=== PATIENT | female | born 1995 | race Caucasian/White ===

== ENCOUNTER 2020-02-05 09:00 | Inpatient (IN) | payer BC ==
[2020-02-05] VITALS (32 sets, daily range): BP systolic 140–180; BP diastolic 71–104; PULSE 82–117; TEMP 97.7–98.8
[~2020-02-05] VITALS: Ht 167.6 cm; Wt 89.1 kg
--- NOTE | 2020-02-05 09:20 | NUR ---
Patient ambulatory onto unit with at side from office for induction of labor due to elevated blood pressures. Patient changes into gown. Oriented to room, plan of care discussed. Patient reports good movement and occasional tightening, denies contractions, vaginal bleeding, or leaking of fluid. Patient denies any headaches, dizziness, visual disturbances, ruq pain, or nausea. EFMS on, VS taken. IV attempted x2 by this RN. IV attempted x2 by Lyly GAMA. IV started in right hand by Rod BERRY at 0945. Labs drawn and LR infusing per orders. Assessment completed, consents signed. SVE /-2 per in office. Pitocin started per protocol.
[2020-02-05] MEDS ORDERED: PRENATAL VITAMI1 TA3 PO (09:52)
[2020-02-05] MEDS ORDERED: TYLENOL PM EXTR1 TA1 PO (09:53)
[2020-02-05 10:16] LABS: COLLECTION METHOD CLEAN CATCH
[2020-02-05 10:22] LABS: MUCOUS Present /lpf; PH 6 (5-8); SQUAMOUS EPITHELIAL 0-2 /hpf; URINE APPEARANCE Clear; URINE BACTERIA None Seen /hpf; URINE BILIRUBIN Negative (NEGATIVE); URINE BLOOD Negative (NEGATIVE); URINE COLOR Yellow; URINE GLUCOSE Negative (NEGATIVE); URINE KETONE Negative (NEGATIVE); URINE LEUKOCYTE ESTERASE Negative (NEGATIVE); URINE NITRATE Negative (NEGATIVE); URINE PROTEIN(semi-quant) Negative (NEGATIVE); URINE RBC 0-2 /hpf; URINE UROBILINOGEN Negative (NEGATIVE); URINE WBC 0-2 /hpf
[2020-02-05 10:23] LABS: BASO % 0.4 % (0.0-2.0); EOS % 0.5 % (0-4.0); GRAN # 6.1 (1.4-6.5); GRAN % 72.1 % (42.2-75.2); HEMOGLOBIN 11.4 g/dl (12.5-16.0); LYMPH # 1.7 (1.2-3.4); LYMPH % 20.3 % (20.0-51.0); MEAN CELL VOLUME 83 fl (80.0-100.0); MEAN CORPUSCULAR HEMOGLOBIN 26 pg (27.0-31.0); MEAN CORPUSCULAR HGB CONC 31 g/dl (33.0-37.0); MEAN PLATELET VOLUME 12.1 fl (7.4-10.4); MONO # 0.5 (0.1-0.6); MONO % 6.3 % (1.7-9.3); PLATELET COUNT 235 K/mm3 (130-400); RED BLOOD COUNT 4.42 M/mm3 (4.10-5.30); REDCELL DISTRIBUTION WIDTH-CV 15.9 % (11.5-14.5)
[2020-02-05 10:24] LABS: HEMATOCRIT 36.5 % (37.0-47.0)
[2020-02-05 10:32] LABS: ALBUMIN 3.5 gm/dL (3.5-5.0); BILIRUBIN,TOTAL 0.4 mg/dL (0.0-1.0); CALCIUM 9.1 mg/dL (8.4-10.2); CREATININE, serum 0.45 (0.52-1.25); POTASSIUM 4.2 mmol/L (3.4-5.0); TOTAL PROTEIN 6.6 gm/dL (6.4-8.2)
--- NOTE | 2020-02-05 10:40 | NUR ---
to bedside. AROM at 1043, moderate amount of clear fluid noted. SVE /-2 per provider. Plan of care discussed. Questions answered.
--- NOTE | 2020-02-05 12:00 | NUR ---
Patient requesting epidural. LR bolus started. Rod BERRY notified. 1145: Patient sitting up for epidural. 1151: Lidocaine. 1155: Epidural Catheter. 1156: Test Dose given by Rod BERRY, no adverse reactions notified. 1200: Patient repositioned to left tilt.
--- NOTE | 2020-02-05 12:30 | NUR ---
Patient comfortable with epidural. Ulrich catheter placed. SVE . Patient repositioned to right tilt with peanut ball in place. to bedside, SVE performed by provider, .
[2020-02-05] MEDS ORDERED: MOTRIN 800800 MG/TAB PO (12:52)
--- NOTE | 2020-02-05 13:30 | NUR ---
Patient comfortable with epidural, states she feels some pressure with contractions. SVE Complete/+1 at 1333. notified at 1337. Ulrich catheter dc'd at 1347. BPs elevated, notified. Orders to administer Labetalol given, see eMAR.
--- NOTE | 2020-02-05 15:05 | NUR ---
1405: Initial push. This RN remains at bedside during pushing progress. 1425: updated to pushing progress and vital signs. Requested for delivery. 1445: at bedside for delivery. 1451: Nursery nurse, Sara RN, requested for delivery. 1454: Spontaneous vaginal delivery of viable female infant over 4th degree perineal laceration assisted by . care assumed by Sara RN at this time. Pitocin off. 1455: Spontaneous vaginal delivery of placenta assisted by . Fundus firm, lochia WNL. Pitocin infusing at 333ml/hr per protocol. 1457: Red rosa catheter used to drain bladder by , approximately 300ml clear yellow urine noted. 2-[address]-1 used to repair laceration by . 1505: Recovery started. Fundus firm, lochia WNL. Ice pack in place.
--- NOTE | 2020-02-05 17:05 | NUR ---
Patient up to bathroom with RN stand by assist x1. Patient void without difficulty. Underwear and peripad in place, new gown on. Patient becomes dizzy. 2nd RN at side to assist patient to wheelchair. Patient to Room 208 via wheelchair, transferred to bed. Call light within reach.
[2020-02-06 02:00] VITALS: BP 150/86; PULSE 89; TEMP 98.5
[2020-02-06 05:00] VITALS: BP 151/72; PULSE 79; TEMP 98.4
[2020-02-06 07:45] VITALS: BP 135/76; PULSE 95; TEMP 98.4
--- NOTE | 2020-02-06 07:45 | NUR ---
Rests in bed, alert. Percocet 5/325 mg two given as ordered for pain. Left lower labia slightly swollen. Encouraged to use ice packs and tucks pads.
[2020-02-06 12:00] VITALS: BP 134/76; PULSE 86; TEMP 98.7
[2020-02-06 17:13] VITALS: BP 124/68; PULSE 76; TEMP 98.1
[2020-02-06 19:30] VITALS: BP 134/69; PULSE 83; TEMP 97.9
[2020-02-07 04:00] VITALS: BP 119/71; PULSE 85; TEMP 97.9
[2020-02-07 08:10] VITALS: BP 136/80; PULSE 98; TEMP 98.6
[2020-02-07] MEDS ORDERED: SENOKOT S 50 MG1 TAB PO (09:55)
[2020-02-07] MEDS ORDERED: TRANDATE 100MG100 MG PO (09:55)
[2020-02-07] MEDS ORDERED: PHILLIPS M400 MG/51 PO (09:55)
[2020-02-07] MEDS ORDERED: PERCOCET 325 MG1 TA2 PO (09:55)
== END 2020-02-07 12:15 | disposition home or self-care (01) | DRG 768 ==
LOC: LDR 09:00 → OB 17:15
PROVIDERS: ADMIT Obstetrics & Gynecology
PROC: 10E0XZZ Delivery of Products of Conception, External Approach (ICD-10-PCS; principal; 2020-02-05)
PROC: 0DQP0ZZ Repair Rectum, Open Approach (ICD-10-PCS; 2020-02-05)
PROC: 10907ZC Drainage of Amniotic Fluid, Therapeutic from Products of Conception, Via Natural or Artificial Opening (ICD-10-PCS; 2020-02-05)
PROC: 3E033VJ Introduction of Other Hormone into Peripheral Vein, Percutaneous Approach (ICD-10-PCS; 2020-02-05)
PROC: 0UQMXZZ Repair Vulva, External Approach (ICD-10-PCS; 2020-02-05)
DX: O13.4 Gestational [pregnancy-induced] hypertension without significant proteinuria, complicating childbirth (principal); Z37.0 Single live birth; Z3A.39 39 weeks gestation of pregnancy; O71.82 Other specified trauma to perineum and vulva; O70.3 Fourth degree perineal laceration during delivery
CPT/HCPCS: J0690; J2590; J7120